=== PATIENT | male | born 1990 | race Caucasian/White ===

== ENCOUNTER 2024-02-06 14:40 | Emergency (ER) | payer BC ==
[2024-02-06] MEDS: LIDOCAINE 1% INJ 10MG/ML (20 ML MDV) SQ ONE (16:17)
--- NOTE | 2024-02-06 16:27 | XR ---
Right fifth toe. HISTORY: Pain, redness and swelling. COMPARISON: None. TECHNIQUE: 3 views of the right fifth toe were obtained. FINDINGS: There is no fracture, dislocation, intraosseous or intra-articular abnormality. There are no radiopaq ue foreign bodies or soft tissue gas. IMPRESSION: No significant abnormality seen.
--- NOTE | 2024-02-06 16:54 | ED ---
General Adult HPI - General Source: patient, RN notes reviewed Mode of arrival: ambulatory Limitations: no limitations <Mary Earl - Last Filed: 02/09/24 10:26> <Yadira Gómez - Last Filed: 02/09/24 12:54> - General Chief complaint: Extremity Injury, Lower Stated complaint: R Toe Injury Time Seen by Provider: 02/06/24 15:19 - History of Present Illness Initial comments: 33-year-old male presents to the emergency department for right toe redness and pain. He states that he noticed this yesterday. He states that it started to hurt yesterday in his shoe. After he took his shoe off he noticed some redness to the area. He notes today worsening redness and blistering to the toe. He denies fever, admits to chills. (Mary Earl) - Related Data Previous Rx's Medication Instructions Recorded clindamycin HCL 300 mg PO QID #40 cap 02/06/24 Allergies Allergy/AdvReac Type Severity Reaction Status Date / Time No Known Allergies Allergy Verified 02/07/24 16:55 Review of Systems ROS Other: All systems not noted in ROS Statement are negative. <Mary Earl - Last Filed: 02/09/24 10:26> ROS Other: All systems not noted in ROS Statement are negative. <Yadira Gómez - Last Filed: 02/09/24 12:54> ROS Statement: Those systems with pertinent positive or pertinent negative responses have been documented in the HPI. Past Medical History Past Medical History: No Reported History History of Any Multi-Drug Resistant Organisms: None Reported Past Surgical History: Back Surgery, Orthopedic Surgery, Tonsillectomy Past Psychological History: No Psychological Hx Reported Smoking Status: Never smoker Past Alcohol Use History: Occasional Past Drug Use History: None Reported <Mary Earl - Last Filed: 02/09/24 10:26> General Exam Limitations: no limitations General appearance: alert, in no apparent distress Head exam: Present: atraumatic, normocephalic, normal inspection Eye exam: Present: normal appearance, PERRL, EOMI. Absent: scleral icterus, conjunctival injection, periorbital swelling Respiratory exam: Present: normal lung sounds bilaterally. Absent: respiratory distress, wheezes, rales, rhonchi, stridor Cardiovascular Exam: Present: normal rhythm, tachycardia, normal heart sounds. Absent: systolic murmur, diastolic murmur, rubs, gallop, clicks Extremities exam: Present: full ROM, tenderness, normal capillary refill, other (Erythema to the right fifth toe with drainable paronychia formation). Absent: pedal edema, joint swelling, calf tenderness Neurological exam: Present: alert, oriented X3 Psychiatric exam: Present: normal affect, normal mood Skin exam: Present: warm, dry, erythema (right 5th toe). Absent: intact, normal color <Mary Earl - Last Filed: 02/09/24 10:26> Course Vital Signs 02/06/24 02/06/24 02/06/24 14:51 17:03 18:00 Temperature 98 F 98.6 F 98.7 F Pulse Rate 107 H 108 H 95 Respiratory 18 20 18 Rate Blood Pressure 169/101 175/108 146/93 O2 Sat by Pulse 98 98 97 Oximetry 02/06/24 02/06/24 18:54 20:48 Temperature 98.6 F 98.4 F Pulse Rate 92 80 Respiratory 18 20 Rate Blood Pressure 139/91 134/87 O2 Sat by Pulse 98 98 Oximetry Medical Decision Making - Lab Data Result diagrams: 02/06/24 17:48 02/06/24 17:48 <Mary Earl - Last Filed: 02/09/24 10:26> - Lab Data Result diagrams: 02/06/24 17:48 02/06/24 17:48 <Yadira Gómez - Last Filed: 02/09/24 12:54> - Medical Decision Making Was pt. sent in by a medical professional or institution (Dr. PA, JET ENGINE MECHANIC, urgent care, hospital, or halfway...) When possible be specific @ -[No] Did you speak to anyone other than the patient for history (EMS, parent, family, police, friend...)? What history was obtained from this source @ -[No] Did you review nursing and triage notes (agree or disagree)? Why? @ -[I reviewed and agree with nursing and triage notes] Were old charts reviewed (outside hosp., previous admission, EMS record, old EKG, old radiological studies, urgent care reports/EKG's, halfway records)? Report findings @ -[No old charts were reviewed] Differential Diagnosis (chest pain, altered mental status, abdominal pain women, abdominal pain men, vaginal bleeding, weakness, fever, dyspnea, syncope, headache, dizziness, GI bleed, back pain, seizure, CVA, palpatations, mental health, musculoskeletal)? @ -[Differential Musculoskeletal Muscular strain, contusion, ligament sprain, fracture, arthritis, septic arthritis, bursitis, cellulitis, muscle spasm, nerve compression, DVT, arterial occlusion, herpes zoster, electrolyte abnormality, tumor.... This is not meant to be in all inclusive list] EKG interpreted by me (3pts min.). @ -[none] X-rays interpreted by me (1pt min.). @ -[X-ray of the right fifth toe shows no evidence of acute fracture or bony erosion] CT interpreted by me (1pt min.). @ -[None done] U/S interpreted by me (1pt. min.). @ -[None done] What testing was considered but not performed or refused? (CT, X-rays, U/S, labs)? Why? @ -[None] What meds were considered but not given or refused? Why? @ -[None] Did you discuss the management of the patient with other professionals (professionals i.e. , PA, JET ENGINE MECHANIC, lab, RT, psych nurse, medical social consultant, policy officer, teacher, information officer, field nurse case manager)? Give summary @ -[No] Was smoking cessation discussed for >3mins.? @ -[No] Was critical care preformed (if so, how long)? @ -[No] Were there social determinants of health that impacted care today? How? (Homelessness, low income, unemployed, alcoholism, drug addiction, transportation, low edu. Level, literacy, decrease access to med. care, assisted, rehab)? @ -[No] Was there de-escalation of care discussed even if they declined (Discuss DNR or withdrawal of care, Hospice)? DNR status @ -[No] What co-morbidities impacted this encounter? (DM, HTN, Smoking, COPD, CAD, Cancer, CVA, ARF, Chemo, Hep., AIDS, mental health diagnosis, sleep apnea, morbid obesity)? @ -[None] Was patient admitted / discharged? Hospital course, mention meds given and route, prescriptions, significant lab abnormalities, going to OR and other p ertinent info. @ -[Discharged. Patient presented to the emergency department for evaluation of right fifth toe redness and pain. XR obtained revealing no acute fracture or bony erosion. Labs obtained revealing mild leukocytosis at 12.8, CMP unremarkable. Area on toe was drained and wound cultures were sent. Patient provided dose of IV antibiotics in ED and prescription sent for PO. Advised completing course of antibiotics. Patient understanding and agreeable with plan. Case discussed with Dr. Gómez] Undiagnosed new problem with uncertain prognosis? @ -[No] Drug Therapy requiring intensive monitoring for toxicity (Heparin, Nitro, Insulin, Cardizem)? @ -[No] Were any procedures done? @ -[I&D] Diagnosis/symptom? @ -cellulitis, paronychia Acute, or Chronic, or Acute on Chronic? @ -[acute] Uncomplicated (without systemic symptoms) or Complicated (systemic symptoms)? @ -[uncomplicated] Side effects of treatment? @ -[No] Exacerbation, Progression, or Severe Exacerbation? @ -[No] Poses a threat to life or bodily function? How? (Chest pain, [place], [place], pneumonia, PE, COPD, DKA, ARF, appy, cholecystitis, CVA, Diverticulitis, Homicidal, Suicidal, threat to staff... and all critical care pts) @ -[No] (Mary Earl) Patient is a 33 y/o male without significant past medical history. No history of diabetes or CKD. Presents today for toe pain and swelling. Patient initially seen and assessed by PA, paronychia drainage was performed prior to my assessment. On my assessment fifth toe is erythematous along the medial portion of the 5th toe and small amount of red streaking towards the dorsal aspect of the foot. Exam consistent with draining paronychia with surrounding cellulitis. Given the patient has no history of immunosuppression and is otherwise healthy he he was given a dose of IV antibiotics due to red streaking on foot and was discharged home with oral antibiotics. The area of erythema was marked with a skin marker so patient can monitor this area closely. I discussed with the patient the importance of monitoring this area for any w orsening erythema and to return to the emergency department should he feel the redness is worsening. We additionally discussed the importance of performing warm water Epsom salt soaks up to 4 times a day, until redness and swelling had resolved so that the infection could continue to drain, wearing well-fitting shoes, avoiding tight fitting shoes and keeping the area clean and dry. Patient and I discussed the importance of monitoring for any worsening redness, any myalgias fevers, nausea and vomiting, failure symptoms to improve and should he experience the symptoms he should return to the ER immediately for reassessment. Patient understanding and comfortable with plan of care. (Yadira Gómez) - Lab Data Lab Results 02/06/24 02/06/24 02/06/24 Range/Units 17:48 17:48 17:48 WBC 12.8 H (3.8-10.6) k/uL RBC 4.99 (4.30-5.90) m/uL Hgb 15.4 (13.0-17.5) gm/dL Hct 45.1 (39.0-53.0) % MCV 90.3 (80.0-100.0) fL MCH 30.8 (25.0-35.0) pg MCHC 34.1 (31.0-37.0) g/dL RDW 12.6 (11.5-15.5) % Plt Count 279 (150-450) k/uL MPV 7.7 Neutrophils % 75 % Lymphocytes % 14 % Monocytes % 6 % Eosinophils % 3 % Basophils % 0 % Neutrophils # 9.6 H (1.3-7.7) k/uL Lymphocytes # 1.8 (1.0-4.8) k/uL Monocytes # 0.8 (0-1.0) k/uL Eosinophils # 0.3 (0-0.7) k/uL Basophils # 0.1 (0-0.2) k/uL Sodium 139 (137-145) mmol/L Potassium 3.9 (3.5-5.1) mmol/L Chloride 106 (98-107) mmol/L Carbon Dioxide 25 (22-30) mmol/L Anion Gap 8 mmol/L BUN 11 (9-20) mg/dL Creatinine 0.91 (0.66-1.25) mg/dL Est GFR (CKD-EPI)AfAm >90 (>60 ml/min/1.73 sqM) Est GFR (CKD-EPI)NonAf >90 (>60 ml/min/1.73 sqM) Glucose 93 (74-99) mg/dL Plasma Lactic Acid Heriberto 1.3 (0.7-2.0) mmol/L Calcium 9.7 (8.4-10.2) mg/dL Total Bilirubin 1.1 (0.2-1.3) mg/dL AST 27 (17-59) U/L ALT 42 (4-49) U/L Alkaline Phosphatase 75 (38-126) U/L Total Protein 7.6 (6.3-8.2) g/dL Albumin 5.0 (3.5-5.0) g/dL Disposition Is patient prescribed a controlled substance at d/c from ED?: No <Mary Earl - Last Filed: 02/09/24 10:26> <Yadira Gómez - Last Filed: 02/09/24 12:54> Clinical Impression: Cellulitis, Paronychia Disposition: HOME SELF-CARE Condition: Stable Instructions (If sedation given, give patient instructions): Paronychia (ED), Cellulitis (ED) Additional Instructions: Please follow up with your primary care provider. Return to the emergency department for new or worsening symptoms as discussed. Prescriptions: clindamycin HCL 300 mg PO QID #40 cap Referrals: Jerman Coreas MD [Primary Care Provider] - 1-2 days
[2024-02-06] MEDS: KETOROLAC 15 MG/ML 1 ML VIAL IM STA (17:13)
[2024-02-06 18:09] LABS: Basophils # (A) 0.1 k/uL (0-0.2); Basophils % (A) 0 %; Eosinophils # (A) 0.3 k/uL (0-0.7); Eosinophils % (A) 3 %; HCT 45.1 % (39.0-53.0); HGB 15.4 gm/dL (13.0-17.5); Lymphocytes # (A) 1.8 k/uL (1.0-4.8); Lymphocytes % (A) 14 %; MCH 30.8 pg (25.0-35.0); MCHC 34.1 g/dL (31.0-37.0); MCV 90.3 fL (80.0-100.0); Mean Platelet Volume 7.7; Monocytes # (A) 0.8 k/uL (0-1.0); Monocytes % (A) 6 %; Neutrophils # (A) 9.6 k/uL (1.3-7.7); Neutrophils % (A) 75 %; Platelet Count 279 k/uL (150-450); RBC 4.99 m/uL (4.30-5.90); RDW 12.6 % (11.5-15.5); WBC 12.8 k/uL (3.8-10.6)
[2024-02-06 18:23] LABS: ALT 42 U/L (4-49); AST 27 U/L (17-59); African American GFR (CKD) >90 (>60 ml/min/1.73 sqM); Alkaline Phosphatase 75 U/L (38-126); Anion Gap 8 mmol/L; Blood Urea Nitrogen 11 mg/dL (9-20); Calcium 9.7 mg/dL (8.4-10.2); Carbon Dioxide 25 mmol/L (22-30); Chloride 106 mmol/L (98-107); Glucose 93 mg/dL (74-99); Non-African American GFR(CKD) >90 (>60 ml/min/1.73 sqM); Potassium 3.9 mmol/L (3.5-5.1); Sodium 139 mmol/L (137-145); Total Bilirubin 1.1 mg/dL (0.2-1.3); Total Protein 7.6 g/dL (6.3-8.2)
[2024-02-06] MEDS: HYDROmorphone 0.5 MG/0.5 ML SYRINGE IVP STA (18:56)
[2024-02-06 20:55] VITALS: BP 134/87; PULSE 80; RESP 20; TEMP 98.4
== END 2024-02-06 20:48 | disposition home or self-care (01) ==
LOC: EC 14:40
DX: L03.031 Cellulitis of right toe (principal)
CPT/HCPCS: 36415; 80053; 83605; 85025; 87070; 87205; 87075; 87077; 87186; 73660; 99284; 96365; 96375; 96372; J0690; J2001; J1885; J1170

== ENCOUNTER 2024-02-07 16:46 | Emergency (ER) | payer BC ==
[2024-02-07 16:55] VITALS: TEMP 98.1
--- NOTE | 2024-02-07 18:07 | ED ---
Extremity Problem HPI - General Chief complaint: Extremity Problem,Nontraumatic Stated complaint: Right foot infection Time Seen by Provider: 02/07/24 16:57 Source: patient Mode of arrival: ambulatory Limitations: no limitations - History of Present Illness Initial comments: 33-year-old male presenting with concerns for possible worsening infection to the right foot. Patient was seen here yesterday and diagnosed with paronychia. Abscess was drained and he was started on antibiotics. Redness was outlined with skin marker. He was concerned that today it seemed like the redness was expanding beyond the marker. No fever. No new injury or trauma. - Related Data Previous Rx's Medication Instructions Recorded clindamycin HCL 300 mg PO QID #40 cap 02/06/24 Allergies Allergy/AdvReac Type Severity Reaction Status Date / Time No Known Allergies Allergy Verified 02/07/24 16:55 Review of Systems ROS Statement: Those systems with pertinent positive or pertinent negative responses have been documented in the HPI. ROS Other: All systems not noted in ROS Statement are negative. Past Medical History Past Medical History: No Reported History History of Any Multi-Drug Resistant Organisms: None Reported Past Surgical History: Back Surgery, Orthopedic Surgery, Tonsillectomy Past Psychological History: No Psychological Hx Reported Smoking Status: Never smoker Past Alcohol Use History: Occasional Past Drug Use History: None Reported General Exam Limitations: no limitations General appearance: alert, in no apparent distress Head exam: Present: atraumatic, normocephalic Eye exam: Present: normal appearance, EOMI Neck exam: Present: normal inspection. Absent: meningismus Respiratory exam: Absent: respiratory distress Cardiovascular Exam: Present: regular rate Right Foot/Toe exam: Present: full ROM, tenderness, swelling, erythema Neurological exam: Present: alert, oriented X3 Psychiatric exam: Present: normal affect, normal mood Course Vital Signs 02/07/24 02/07/24 16:53 18:13 Temperature 98.1 F 98.1 F Pulse Rate 78 80 Respiratory 18 16 Rate Blood Pressure 131/78 134/80 O2 Sat by Pulse 97 97 Oximetry Medical Decision Making - Medical Decision Making Was pt. sent in by a medical professional or institution (, PA, SALES CLERK SUPERVISOR, urgent care, hospital, or half-way...) When possible be specific @ -No Did you speak to anyone other than the patient for history (EMS, parent, family, police, friend...)? What history was obtained from this source @ -No Did you review nursing and triage notes (agree or disagree)? Why? @ -I reviewed and agree with nursing and triage notes Were old charts reviewed (outside hosp., previous admission, EMS record, old EKG, old radiological studies, urgent care reports/EKG's, half-way records)? Report findings @ -No old charts were reviewed Differential Diagnosis (chest pain, altered mental status, abdominal pain women, abdominal pain men, vaginal bleeding, weakness, fever, dyspnea, syncope, headache, dizziness, GI bleed, back pain, seizure, CVA, palpatations, mental health, musculoskeletal)? @ -Differential includes cellulitis, abscess, allergic reaction, this is not an all-inclusive list EKG interpreted by me (3pts min.). @ -As above X-rays interpreted by me (1pt min.). @ -None done CT interpreted by me (1pt min.). @ -None done U/S interpreted by me (1pt. min.). @ -None done What testing was considered but not performed or refused? (CT, X-rays, U/S, labs)? Why? @ -None What meds were considered but not given or refused? Why? @ -None Did you discuss the management of the patient with other professionals (professionals i.e. , PA, SALES CLERK SUPERVISOR, lab, RT, psych nurse, social services manager, attending pathologist, teacher, investment officer, nurse case management)? Give summary @ -No Was smoking cessation discussed for >3mins.? @ -No Was critical care preformed (if so, how long)? @ -No Were there social determinants of health that impacted care today? How? (Homelessness, low income, unemployed, alcoholism, drug addiction, transportation, low edu. Level, literacy, decrease access to med. care, [facility], rehab)? @ -No Was there de-escalation of care discussed even if they declined (Discuss DNR or withdrawal of care, Hospice)? DNR status @ -No What co-morbidities impacted this encounter? (DM, HTN, Smoking, COPD, CAD, Cancer, CVA, ARF, Chemo, Hep., AIDS, mental health diagnosis, sleep apnea, morbid obesity)? @ -None Was patient admitted / discharged? Hospital course, mention meds given and route, prescriptions, significant lab abnormalities, going to OR and other pertinent info. @ -33-year-old male presenting with concerns for possible worsening infection to his right foot. There is a paronychia noted with some surrounding redness, there is skin marker that was placed yesterday when the patient was seen here as well. Abscess was drained and he was started on antibiotics. The redness appears well within the margins of the skin marker. Dr. Gómez had seen the patient yesterday, I had her see the patient again today who confirms that this does appear improved from yesterday. We had him soak his foot in warm soapy water which caused the abscess to open again and started draining more. He is instructed on wound care and instructed to continue taking his antibiotics. Discharged home. Follow-up with PCP. Report back to ER with any new or worsening symptoms. Discussed return parameters and answered all questions. Patient conveyed verbal understanding and agreed to the plan. I discussed this case in detail with my attending Dr. Gómez Undiagnosed new problem with uncertain prognosis? @ -No Drug Therapy requiring intensive monitoring for toxicity (Heparin, Nitro, Insulin, Cardizem)? @ -No Were any procedures done? @ -No Diagnosis/symptom? @ -Paronychia Acute, or Chronic, or Acute on Chronic? @ -Acute Uncomplicated (without systemic symptoms) or Complicated (systemic symptoms)? @ -Uncomplicated Side effects of treatment? @ -No Exacerbation, Progression, or Severe Exacerbation? @ -No Poses a threat to life or bodily function? How? (Chest pain, [place], [place], pneumonia, PE, COPD, DKA, ARF, appy, cholecystitis, CVA, Diverticulitis, Homicidal, Suicidal, threat to staff... and all critical care pts) @ -Low likelihood Disposition Clinical Impression: Paronychia, Cellulitis Disposition: HOME SELF-CARE Condition: Good Instructions (If sedation given, give patient instructions): Paronychia (ED), Cellulitis (ED) Additional Instructions: Follow-up with your PCP. Report back to ER with any new or worsening symptoms. Soak the wound in warm soapy water at least 4 times a day to help express the remaining pus. Continue taking your antibiotics as prescribed Is patient prescribed a controlled substance at d/c from ED?: No Referrals: Jerman Coreas MD [Primary Care Provider] - 1-2 days Time of Disposition: 18:06
[2024-02-07 18:15] VITALS: BP 134/80; PULSE 80; RESP 16
== END 2024-02-07 18:15 | disposition home or self-care (01) ==
LOC: EC 16:46
DX: L03.031 Cellulitis of right toe (principal)
CPT/HCPCS: 99283